=== PATIENT | male | born 1955 | race Caucasian/White ===

== ENCOUNTER 2016-06-25 06:49 | Outpatient (CLI) | payer OTHER ==
[2016-06-25] MEDS ORDERED: TENORMIN25 MG (08:15)
[2016-06-25 08:23] LABS: BASOPHILS 0.3 % (0-2); EOSINOPHILS 2.4 % (0-7); HEMATOCRIT 48.8 % (42.0-54.0); HEMOGLOBIN 16.6 g/dL (13.5-17.5); IMMATURE GRANULOCYTES 0.2 % (0-5); LYMPHOCYTES 25.7 % (15-50); MCH 30.8 pg (26.0-34.0); MCV 90.5 fL (80.0-100.0); MEAN PLATELET VOLUME 10.9 fL (7.4-10.4); MONOCYTES 7.1 % (2-11); NEUTROPHILS 64.3 % (40-80); PLATELET COUNT 195 10x3/uL (130-400); RBC 5.39 10x6/uL (4.20-6.10); WBC 5.8 10x3/uL (4.8-10.8)
[2016-06-25 08:40] LABS: CALC OSMOLALITY 273 mosm/kg (275-300); CALCIUM 9.2 mg/dL (8.5-10.1); CARBON DIOXIDE 28.9 mmol/L (21.0-32.0); CHLORIDE - SERUM 103 mmol/L (98-107); CREATININE - SERUM 0.9 mg/dL (0.6-1.3); GLUCOSE 134 mg/dL (74-106); POTASSIUM - SERUM 4.3 mmol/L (3.5-5.1); SODIUM 136 mmol/L (136-145); UREA NITROGEN 13 mg/dL (7-18); eGFR NON AFRICAN AMERICAN > 90 mL/min (90-120)
[2016-06-25] MEDS ORDERED: PLAVIX75 MG PO (12:13)
== END 2016-06-25 16:09 | disposition home or self-care (01) ==
LOC: D.CATH 06:49
PROVIDERS: Internal Medicine Interventional Cardiology
DX: I25.119 Atherosclerotic heart disease of native coronary artery with unspecified angina pectoris (principal)

== ENCOUNTER 2016-06-30 22:15 | Emergency (ER) | payer OTHER ==
[2016-06-25 08:16] VITALS: BMI 34.0
[~2016-06-30 22:15] MED LIST: PLAVIX75 MG PO; TENORMIN25 MG
== END 2016-06-30 22:48 | disposition home or self-care (01) ==
LOC: D.ER 22:15
DX: R60.0 Localized edema (principal); L76.82 Other postprocedural complications of skin and subcutaneous tissue; I10 Essential (primary) hypertension

== ENCOUNTER 2017-01-16 08:47 | Emergency (ER) | payer OTHER ==
[2016-06-25 08:16] VITALS: BMI 34.0
== END 2017-01-16 10:18 | disposition home or self-care (01) ==
LOC: D.ER 08:47
DX: J06.9 Acute upper respiratory infection, unspecified (principal); I10 Essential (primary) hypertension

== ENCOUNTER 2019-02-18 01:37 | Inpatient (IN) | payer SELFPAY ==
[2019-02-18] VITALS (8 sets, daily range): BP systolic 108–197; BP diastolic 71–106; BMI 33.3
[~2019-02-18] VITALS: Ht 175.3 cm; Wt 102.1 kg
--- NOTE | ~2019-02-18 | EC ---
PATIENT:ZANE NICKERSON DATE OF SERVICE: 02/18/19 SEX: M MEDICAL RECORD: [id number] DATE OF : [birth year] LOCATION:D.M2 D.211 AGE OF PATIENT: 63 ADMISSION DATE: 02/18/19 REFERRING PHYSICIAN: INTERPRETING PHYSICIAN: SAGRARIO MEDRANO MD ECHOCARDIOGRAM REPORT ECHO CHARGES 4 ECHO COMPLETE Date: 02/18/19 CLINICAL DIAGNOSIS: SOB, [place] ECHOCARDIOGRAPHIC MEASUREMENTS (adult normal given) AC root (d.<3.7cm) 2.9 cm LV Septum d (<1.2 cm> 1.0 cm Valve Excursion 1.5 cm LV Septum (systole) 1.1 cm Left Atria (s.<4.0cm> 4.0 cm LVPW d(<1.2cm) 1.0 cm RV (d.<2.3cm) 3.9 cm LVPW (sytole) 1.1 cm LV diastole(<5.6CM) 6.3 cm MV E-F(>70mm/sec) cm LV systole 5.6 cm LVOT Diameter 1.9 cm MV exc.(>10mm) cm Est.ejection fraction (50-75%) % DOPPLER: LVIT cm/sec A 42 cm/sec E 100 cm/sec LA cm/sec RVSP 40.4 mmHg LVOT 95 cm/sec AOP1/2T m/s Asc. Ao 122 cm/sec RVOT 62 cm/sec RA cm/sec PA 81 cm/sec AV Gradient Peak 5.9 mmHg AV Mean 3.7 mmHg AV Area 2.1 cm MV Gradient Peak 4.5 mmHg MV Mean 2.7 mmHg MV Area cm COMMENTS: Car Blocker: Terry JACKSHAQ GERARDO Spanish Professor: 1 Dr. Medrano TAPE# PACS Pericardial Effusion N DATE OF SERVICE: 02/18/2019 FINDINGS: 1. Left ventricular chamber size is mildly dilated. Left ventricular systolic function is moderately reduced, overall ejection fraction 35%. 2. Left atrium is within normal limits. Right atrium and right ventricle chamber sizes are mildly dilated. 3. Valvular structures have normal structure and motion. 4. Doppler interrogation reveals mild mitral regurgitation, mild tricuspid regurgitation, no other valvular insufficiency or stenosis. Pulmonary systolic ECHOCARDIOGRAM REPORT [id number] ZANE NICKERSON pressure estimated at 40 mmHg. 5. No evidence of pericardial effusion or left ventricular thrombus. TRANSINT:[id number] Voice Confirmation ID: [id number] DOCUMENT ID: [id number] SAGRARIO MEDRANO MD CC: [id number] DICTATION DATE: 02/19/19 1303 ASSEMBLY MANAGER: 02/19/192007 ADM IN [place] [id number] [place] [id number]
--- NOTE | ~2019-02-18 | OP ---
PATIENT NAME: ZANE NICKERSON MEDICAL RECORD: [id number] :59 LOCATION:D.M2 D.2111 ADMISSION DATE:02/18/19 SURGEON: SAGRARIO OLIVERA MD DATE OF OPERATION: 02/19/2019 PROCEDURES: 1. PTCA and stent to the RCA. 2. PTCA and stent to the left circumflex. 3. PTCA and stent to the LAD. 4. IFR of the LAD and circumflex. 5. Left heart catheterization. 6. Selective coronary angiography. 7. Left ventriculogram. INDICATIONS: Angina, coronary artery disease, and cardiomyopathy, congestive heart failure. DESCRIPTION OF PROCEDURE: After informed consent was obtained and after a detailed description of the risks, benefits as well as alternative therapies, the patient elected to proceed with angiogram and angioplasty. The right femoral area was prepped and draped in normal sterile fashion. Right femoral artery was cannulated via modified Seldinger technique with placement of 6-Georgian sheath. All catheters exchanged through this sheath. FINDINGS: The left ventriculogram was performed in standard 30-degree PLUMMER view, reveals global hypokinesis, ejection fraction 20% to 25%. SELECTIVE CORONARY ANGIOGRAPHY: 1. Left main is with no significant angiographic disease. 2. Left anterior descending has 80% stenosis in the mid vessel. An IFR was abnormal at 0.80. 3. Left circumflex has 80% stenosis in the mid vessel. An IFR was abnormal at 0.89. 4. Right coronary has 80% stenosis in the proximal vessel. PTCA STENT OF THE LAD: The stent used was a 3.5 x 15 mm Cobra. Result was 0% residual stenosis. PTCA STENT OF THE LEFT CIRCUMFLEX: The stent used was a 2.5 x 18 mm Cobra. Result was 0% residual stenosis. PTCA STENT OF THE RCA: Stent used was 3.5 x 15 mm Cobra. Result was 0% residual stenosis. OVERALL IMPRESSION: Successful percutaneous transluminal coronary angioplasty and stent RCA, left circumflex and left anterior descending all going from 80% initial stenosis to 0% residual. TRANSINT:[id number] Voice Confirmation ID: [id number] DOCUMENT ID: [id number] OPERATIVE REPORT [id number] ZANE NICKERSON SAGRARIO OLIVERA MD CC: [id number] DICTATION DATE: 02/19/19 1035 TRY OUT PERSON: 02/19/19 1802 ADM IN [facility] [address] [place] [address]
--- NOTE | ~2019-02-18 | CN ---
PATIENT NAME:ZANE ORTEZ MEDICAL RECORD: [id number] : 59 LOCATION:[facility].2111 ADMIT DATE: 02/18/19 ACCOUNT: [id number] CONSULTING PHYSICIAN: SAGRARIO OLIVERA MD REFERRING PHYSICIAN: MARIUM SANCHEZ MD DATE OF CONSULTATION: 02/18/2019 CARDIOLOGY CONSULTATION DIAGNOSES: 1. Unstable angina. 2. Coronary artery disease. 3. Hypertension. 4. Hyperlipidemia. 5. Family history of coronary artery disease. 6. Shortness of breath, dyspnea on exertion. 7. Pulmonary edema. HISTORY OF PRESENT ILLNESS: Mr. Ortez has a history of ischemic heart disease, PTCA stent approximately 3 years ago. For the past week, he has had increasing chest pain, chest pressure, some typical components, some atypical components; however, it is just like that of his previous angina even though the predominant component of the chest pain is a sharp stabbing component, was resolved yesterday with 2 sublingual nitro. His troponin is elevating, it is barely under positive for a non-Q-wave myocardial infarction at this time. He has had 1 episode of chest discomfort since being admitted after the sublingual nitro. He was found to be short of breath as well and his chest x-ray compatible with pulmonary edema. He did receive Lasix and has had a good diuresis. His breathing has improved after the Lasix. PHYSICAL EXAMINATION: CONSTITUTIONAL/GENERAL APPEARANCE: Well nourished, well developed, appears stated age. EYES: Lids and conjunctivae noninjected. No discharge. No pallor. ENT: Lips within normal limit. No cyanosis. No pallor. NECK: Carotid arteries, bilateral normal upstroke. No bruits. No thrills. No jugular venous pressure or distention. CERVICAL LYMPH NODES: Nontender. Nonenlarged. THYROID: Not enlarged. No nodules. CARDIOVASCULAR: Precordial exam, nondisplaced. No heaves or pericardial thrills. Rate and rhythm, regular. Heart sounds, normal S1, normal S2. No S3, no gallop, no rub. Systolic murmur, not heard. Diastolic murmur, not heard. RESPIRATORY: Respiratory effort, unlabored. Normal curvature. No thoracic deformity. No chest wall tenderness. Percussion, resonant. Auscultation, clear. No wheezes, no rales, no rhonchi. ABDOMEN: Soft, nondistended, nontender. No abdominal pain, no vomiting and normal appetite. MUSCULOSKELETAL: No joint tenderness, normal gait, normal tone. SKIN: Warm and dry. OVERALL IMPRESSION: Unstable angina just like that of his previous angina associated with pulmonary edema, congestive heart failure. He has not had a history of heart failure or pulmonary edema in the past. Most likely, he has recurrent hemodynamically significant coronary artery disease. We will continue diuresis today. Proceed with coronary angiography in the a.m. CONSULT REPORT [id number] ZANE ORTEZ TRANSINT:[id number] Voice Confirmation ID: [id number] DOCUMENT ID: [id number] SAGRAROI OLIVERA MD CC: [id number] DICTATION DATE: 02/18/19 1021 LEATHER PRODUCTION WORKER: 02/18/19 1141 ADM IN [facility] [address] [place] [id number]
--- NOTE | ~2019-02-18 | HEMODYNAMI ---
PATIENT:ZANE NICKERSON MEDICAL RECORD: [id number] : 59 [id number] ADMISSION DATE: 02/18/19 Generatedon:02/23/20198:37 Patient name: ZANE NICKERSON Patient #: [id number] SSN: [id number] : 1955 Date of study: 02/19/2019 Page: Of Hemodynamic Procedure Report Patient Data Patient Demographics Procedure consent was obtained First Name: ZANE Gender: Male Last Name: KRISHAN : 1955 Patient #: [id number] Age: 63 year(s) Race: SSN: [id number] Additional ID: [id number] Contact details Address: [address] [place] [address] State: [place] City: [place] Zip code: [address] Past Medical History Allergies Allergen Reaction Date Comments Reported Other allergy 02/19/2019 LATEX Admission Admission Data Admission Date: 02/18/2019 Admission Time: 13:25 Arrival Date: 02/19/2019 Arrival Time: 0:00 Admit Source: Other Insurance Payor: Private Room #: D.2112 health insurance [facility] #: [id number] Height (in.): 69 BSA: 2.17 (m2) Height (cm.): 175.26 BMI: 33.3 (kg/m2) Weight (lbs.): 225.47 Weight (kg.): 102.27 Lab Results Lab Result Date: 02/19/2019 Lab Result Time: 0:00 Biochemistry Name Units Result Min Max BUN mg/dl 14 --(--*-)-- 7 18 CK-MB ng/ml 2.2 --(--*-)-- 0 3.6 Creatinine mg/dl 0.8 --(-*--)-- 0.6 1.3 eGFR ml/min 90 --(*---)-- 90 120 NONAFRICAN Troponin l ng/ml 0.072 --(----)*- 0 0.06 CBC Name Units Result Min Max Hematocrit % 41.9 -*(----)-- 42 54 Hemoglobin g/dl 13.8 --(*---)-- 13.5 17.5 Procedure Procedure Types Cath Procedure Diagnostic Procedure [facility] w/Coronaries FFR/IVUS FFR Initial FFR Additional Sedation Charges Moderate Sedation up to 15 minutes PCI Procedure Coronary Stent Coronary Stent Initial Coronary Stent Initial x2 Hemochron ACT Test Procedure Description Procedure Date Procedure Date: 02/19/2019 Procedure Start Time: 10:06 Procedure End Time: 10:38 Procedure Staff Name Function Vijay Medrano MD Performing Physician Aamir James RN Nurse Nirali Wilson RT Scrub Belen James RT Monitor Procedure Data Cath Procedure Fluoroscopy Diagnostic fluoroscopy Total fluoroscopy Time: 7.2 time: 7.2 min min Diagnostic fluoroscopy Total fluoroscopy dose: dose: 1003 mGy 1003 mGy Contrast Material Contrast Material Type Amount (ml) Isovue 370 171 Entry Location Entry Primary Successful Side Size Upsize Upsize Entry Closure Succes sful Closure Location (Fr) 1 (Fr) 2 (Fr) Remarks Device Remarks Femoral Right 5 Fr 6 Fr Exoseal artery Short Estimated blood loss: 10 ml Diagnostic catheters Device Type Used For End Catheter Placement MULTIPACK Pigtail 5 Fr Procedure catheter MULTIPACK JL 4.0 5Fr Procedure catheter MULTIPACK 3DRC 5Fr Procedure catheter Procedure Complications No complications Procedure Medications Medication Administration Route Dosage 0.9% NaCl I.V. 100 ml/hr Oxygen etCO2 Nasal cannula 2 l/min Heparin Flush Bag added to field 2 bags (1000units/500ml NS) Lidocaine 2% added to field 20 Versed I.V. 2 mg Fentanyl I.V. 100 mcg Versed I.V. 2 mg Versed I.V. 1 mg Heparin Bolus I.V. 4000 units Plavix P.O. 75 mg Hemodynamics Rest BSA: 2.17 (m2) HGB: 13.8 (g/dl) O2 Consumption: Estimated: 283.94 (ml/min) O2 Co nsumption indexed: Estimated:130.85 (ml/min/m) Heart Rate: 106 (bpm) Snapshots Pre Cath Intra NCS Post Cath Vital Signs Time Heart Resp SPO2 etCO2 NIBP (mmHg) Rhythm Pain Sedation Rate (ipm) (%) (mmHg) Status Level (bpm) 9:34:22 105 24 95 25.6 136/99(111) NSR 0 (11) 10(A) , No pain 9:39:25 106 26 97 28.6 137/93(110) NSR 0 (11) 10(A) , No pain 9:44:10 103 23 96 27.8 135/95(113) NSR 0 (11) 10(A) , No pain 9:48:59 107 21 96 28.6 133/92(118) NSR 0 (11) 10(A) , No pain 9:53:07 100 17 96 33.1 128/87(111) NSR 0 (11) 10(A) , No pain 9:57:15 94 17 97 0.7 130/85(108) NSR 0 (11) 10(A) , No pain 10:01:20 94 15 97 4.5 126/92(103) NSR 0 (11) 10(A) , No pain 10:05:24 105 14 96 29.3 127/94(118) NSR 0 (11) 10(A) , No pain 10:09:28 100 23 98 24.8 123/97(115) NSR 0 (11) 10(A) , No pain 10:14:27 97 14 96 9.7 135/89(108) NSR 0 (11) 9(A) , No pain 10:18:37 96 14 95 0 126/87(98) NSR 0 (11) 9(A) , No pain 10:22:44 95 16 94 0 135/82(98) NSR 0 (11) 9(A) , No pain 10:26:52 94 17 96 0 132/91(99) NSR 0 (11) 10(A) , No pain 10:31:00 97 22 91 0 121/87(104) NSR 0 (11) 10(A) , No pain 10:35:06 100 24 88 0 125/83(104) NSR 0 (11) 10(A) , No pain Medications Time Medication Route Dose Verified Delivered Reason Notes Effectiveness by by 9:37:37 0.9% NaCl I.V. 100 Aamir Aamir Per physician ml/hr Erika James RN RN 9:37:46 Oxygen etCO2 2 Aamir Aamir for low 02 sats Nasal l/min Lorigan Lorigan cannula RN RN 9:37:57 Heparin Flush added 2 Aamir Aamir used for Bag to bags Erika James procedure (1000units/500ml field RN RN NS) 9:38:06 Lidocaine 2% added 20ml Aamir Aamir for local to vial Erika James anesthetic field RN RN 10:04:16 Versed I.V. 2 mg Aamir Aamir for sedation Erika James RN RN 10:04:25 Fentanyl I.V. 100 Aamir Aamir for sedation mcg Erika James RN RN 10:07:41 Versed I.V. 2 mg Aamir Aamir for sedation Erika James RN RN 10:08:55 Versed I.V. 1 mg Aamir Aamir for sedation Erika James RN RN 10:16:43 Heparin Bolus I.V. 4000 Aamir Aamir for units Allegrasimone Erika anticoagulation RN RN 10:27:22 Plavix P.O. 75 mg Aamir Aamir for Erika James antiplatelet RN RN therapy Procedure Log Time Note 9:04:02 Procedure Status Urgent Heart Cath (IP). 9:04:03 Aamir James RN sent for patient. Start room use. 9:04:04 Time tracking: Regular hours (M-F 7:00 - 5:00) 9:04:06 Plan of Care:Hemodynamics will remain stable., Cardiac rhythm will remain stable., Comfort level will be maintained., Respiratory function will remain adequate., Patient/ family verbilizes understanding of procedure., Procedure tolerated without complication., Recovers from procedure without complications.. 9:04:08 Signed procedure consent form obtained from patient. 9:04:11 H&P Date Dictated: 02/19/2019 New H&P dictated by physician.. 9:04:28 Patient allergic to Other allergyLATEX 9:12:55 Diagnostic Cath Status : Urgent 9:14:05 Lab Result : eGFR NONAFRICAN 90 ml/min 9:14:05 Lab Result : Hemoglobin 13.8 g/dl 9:14:05 Lab Result : Hematocrit 41.9 % 9:14:05 Lab Result : Troponin l 0.072 ng/ml 9:14:05 Lab Result : BUN 14 mg/dl 9:14:05 Lab Result : Creatinine 0.8 mg/dl 9:14:05 Lab Result : CK-MB 2.2 ng/ml 9:14:13 Arrival Date: 02/19/2019 12:00:00 AM 9:14:23 Insurance Payor : Private health insurance 9:14:27 Patient Height : 69 inches 9:14:30 Patient Weight : 225.47 lbs 9:16:33 Risk of Mortality: 0.1 9:16:36 Risk of blood transfusion: 0.1 9:16:38 Risk of NEELIMA: 0.2 9:16:44 Stress Test: no; N/A ? 9:16:51 Lab results completed and on chart. 9:16:53 Sharps counted by scrub and verified by R.N. 9:16:53 Alarms reviewed by R. N. 9:17:01 Pre-procedure instructions explained to patient. 9:17:02 Pre-op teaching completed and patient verbalized understanding. 9:17:06 Patient NPO since Midnight. 9:20:44 Admit Source: Other 9:22:55 Patient received from Med II to CCL 1 Alert and oriented. Tansferred to table in Supine position. 9:22:56 Warm blankets applied, and nimo hugger turned on for patient comfort. 9:22:57 ECG and BP/O2 sat monitors applied to patient. 9:22:57 Correct patient and procedure confirmed by team. 9:23:01 Full Disclosure recording started 9:33:20 Vital chart was started 9:33:31 Family in patients room. 9:33:33 Baseline sample Acquired. 9:33:40 Rhythm: sinus tachycardia 9:33:46 Was the patient premedicated? Yes 9:33:48 Is the patient allergic to Iodine/contrast media? No. 9:33:49 Is patient on blood thinner?Yes 9:33:54 ACC The patient was administered the following blood thiners within the last 24 hours: ACCAspirin, ACCPlavix 9:33:57 If diabetic: On Metformin? No 9:34:11 ----Pre-sedation anethsthesia assessment.---- 9:34:17 Previous problem with sedation/anesthesia? No ? 9:34:18 Snore? No 9:34:19 Sleep apnea? No 9:34:21 Deviated septum? No 9:34:22 Opens mouth fully? Yes 9:34:24 Sticks out tongue? Yes 9:34:27 Airway obstruction? No ? 9:34:29 Dentures? No ? 9:35:02 Pre procedure: right dorsailis pedis pulse 2+ Normal; easily identifiable; not easily obliterated 9:35:09 Patient pain scale 0/10 ?. 9:35:14 IV patent on arrival in right wrist with 0.9% NaCl at [facility]. 9:35:21 Right groin area was prepped with chlora-prep and draped in sterile fashion 9:35:26 Use device set Femoral Dx 9:35:27 ACIST Syringe (80090) opened to sterile field. 9:35:28 Bag Decanter (2002S) opened to sterile field. 9:35:29 Medline Cath Pack ([id number]) opened to sterile field. 9:35:30 ACIST Hand Control (21701) opened to sterile field. 9:35:31 ACIST Manifold (81472) opened to sterile field. 9:35:32 DIAGNOSTIC Multipack 5Fr catheter set (CS6030) opened to sterile field. 9:35:34 Tegaderm 4 x 4 (1626W) opened to sterile field. 9:35:36 SHEATH 5FR [place] (UPS650) opened to sterile field. 9:35:37 EMERALD Guide Wire (471-449) opened to sterile field. 9:36:58 Zero performed for pressure channel P1 9:37:37 0.9% NaCl 100 ml/hr I.V. was administered by Aamir James RN; Per physician; Verbal order read back and verified. 9:37:46 Oxygen 2 l/min etCO2 Nasal cannula was administered by Aamir James RN; for low 02 sats; Verbal order read back and verified. 9:37:57 Heparin Flush Bag (1000units/500ml NS) 2 bags added to field was administered by Aamir James RN; used for procedure; Verbal order read back and verified. 9:38:06 Lidocaine 2% 20ml vial added to field was administered by Aamir James RN; for local anesthetic; Verbal order read back and verified. 10:03:18 --------ALL STOP TIME OUT------ 10:03:19 Final Timeout: patient, procedure, and site verified with staff and physician. All members of the team are in agreement. 10:03:22 Right groin site verified by team. 10:03:26 Fire Safety Assessment: A--An alcohol-based skin anteseptic being used preoperatively., C--Open oxygen or nitrous oxide is being used., D--An ESU, laser, or fiber-optic light is being used. 10:03:30 Physical assessment completed. ASA score P 2 - A patient with mild systemic disease as per Vijay Medrano MD. 10:03:33 1) 90+ Normal kidney functon but urine findings or structural abnormalities or genetic trait point to kidney disease. 10:03:36 Maximum allowable contrast dose (3.7 X eGFR X 0.75)250 ml. 10:03:41 Sedation plan: IV Moderate Sedation Medication:Versed, Fentanyl 10:04:16 Versed 2 mg I.V. was administered by Aamir James RN; for sedation; Verbal order read back and verified. 10:04:25 Fentanyl 100 mcg I.V. was administered by Aamir James RN; for sedation; Verbal order read back and verified. 10:05:48 Procedure started. 10:06:06 Local anesthetic to right femoral artery with Lidocaine 2% by Vijay Medrano MD.INITIAL ACCESS ONLY 10:06:42 Zero performed for pressure channel P1 10:07:17 A 5 Fr sheath was inserted into the Right Femoral artery 10:07:25 A MULTIPACK Pigtail 5 Fr catheter was advanced over the wire and used for Procedure. 10:07:33 LV gram done using PLUMMER 10:07:37 Injector settings: Ml/sec: 10, Volume: 20, 10:07:41 Versed 2 mg I.V. was administered by Aamir James RN; for sedation; Verbal order read back and verified. 10:08:09 EF : 20 % 10:08:18 A MULTIPACK JL 4.0 5Fr catheter was advanced over the wire and used for Procedure. 10:08:37 LCA angiography performed. 10:08:55 Versed 1 mg I.V. was administered by Aamir James RN; for sedation; Verbal order read back and verified. 10:09:55 Catheter removed. 10:09:59 A MULTIPACK 3DRC 5Fr catheter was advanced over the wire and used for Procedure. 10:10:42 RCA angiography performed. 10:10:44 Catheter removed. 10:10:54 SHEATH 6FR [place] (AHL654) opened to sterile field. 10:11:00 Proceeding to intervention. 10:11:10 Sheath upsized to a 6 Fr Short. 10:11:27 6 Fr XBLAD 4 guide catheter was inserted over the wire 10:11:30 Kemmerer Verrata Plus pressure wire (88890K) opened to sterile field. 10:12:00 FFR/IFR wire advanced. 10:12:35 Wire advanced across lesion. 10:13:30 mLAD lesion measured at .80 with IFR 10:13:41 Wire redirected to CIRC. 10:13:45 Wire advanced across lesion. 10:15:16 OM1 lesion measured at .91 with IFR 10:15:51 mCirc lesion measured at .89 with IFR 10:16:43 Heparin Bolus 4000 units I.V. was administered by Aamir James RN; for anticoagulation; Verbal order read back and verified. 10:17:00 Wire removed. 10:18:13 Place stent Inflation Number: 1 A COBRA RX 2.5 X 18 Stent was prepped and advanced across the Mid LAD . The stent was deployed at 19 LUDWIN for 0:00 (min:sec) . 10:18:33 Pre PCI Site: [place] mCirc has 80% stenosis. 10:18:39 Wire removed. 10:18:40 Stent catheter was removed intact over wire. 10:18:48 CHOICE ES 182 wire advanced. 10:19:48 Wire advanced across lesion. 10:20:24 Pre PCI Site: [facility] mLAD has 80% stenosis. 10:21:46 Place stent Inflation Number: 1 A COBRA RX 3.5 X 15 Stent was prepped and advanced across the Mid CX1 . The stent was deployed at 19 LUDWIN for 0:00 (min:sec) . 10:22:26 Wire redirected to DIAG. 10:22:44 Wire removed. 10:22:45 Stent catheter was removed intact over wire. 10:23:34 CHOICE PT Extra Support 182cm wire ([id number]) opened to sterile field. 10:23:35 GUIDE 6FR AR 2.0 SH catheter ([id number]) opened to sterile field. 10:23:46 6 Fr AR 2 guide catheter was inserted over the wire 10:24:16 NEW CHOICE ES 182 wire advanced. 10:25:00 Pre PCI Site: [facility] mRCA has 80% stenosis. 10:25:49 Place stent Inflation Number: 1 A COBRA RX 3.5 X 15 Stent was prepped and advanced across the Mid RCA . The stent was deployed at 17 LUDWIN for 0:00 (min:sec) . 10:26:31 Wire removed. 10:26:31 Stent catheter was removed intact over wire. 10:26:32 Guide catheter removed. 10:26:36 EXOSEAL 6Fr (EX600) opened to sterile field. 10:26:44 Sheath removed intact; hemostasis achieved with Exoseal to the Right Femoral artery. 10:27:07 Procedure ended.(Physican Out) 10:27:17 Fluoroscopy time 07.20 minutes. 10:27:22 Plavix 75 mg P.O. was administered by Aamir James RN; for antiplatelet therapy; Verbal order read back and verified. 10:27:23 Fluoroscopy dose: 1003 mGy 10:27:23 Flurop Dose total: 1003 10:27:30 Dose Area Product 94942 mGy/cm. 10:27:37 Contrast amount:Isovue 370 171ml. 10:27:41 Maximum allowable dose exceeded? No. 10:27:42 Sharps counted by scrub and verified by R.N. 10:27:47 Post-op/insertion site Right Femoral artery dressed using a 4 x 4 and Tegaderm. 10:27:53 Post right femoral artery:stable, soft, clean and dry 10:27:55 Post Procedure Pulses reassessed and unchanged 10:27:57 Post procedure: right dorsailis pedis pulse 2+ Normal; easily identifiable; not easily obliterated. 10:28:02 Post-procedure physical assessment completed. ASA score P 2 - A patient with mild systemic disease as per Vijay Medrano MD. 10:28:07 Post procedure rhythm: sinus rhythm 10:28:10 Estimated blood loss: 10 ml 10:28:12 Post procedure instruction explained to patient.Patient verbalizes understanding. 10:28:13 Patient needs reinforcement of post procedure teaching. 10:29:02 Procedure type changed to Cath procedure, Diagnostic procedure, LHC, LHC w/Coronaries, FFR/IVUS, FFR Initial, FFR Additional, Sedation Charges, Moderate Sedation up to 15 minutes, PCI procedure, Coronary Stent, Coronary Stent Initial, Coronary Stent Initial x2, Hemochron ACT Test 10:29:33 ACT drawn and resulted at OUT OF RANGE seconds. (normal therapeutic range 180-240 seconds). 10:37:29 Procedure and supply charges have been captured, reviewed, submitted and are correct. 10:37:34 Procedure Complication : No complications 10:37:41 [facility] Findings: MVD- PCI performed (see procedure note) 10:37:43 See physician's report for complete and final results. 10:37:43 Operative report dictated upon procedure completion. 10:38:00 Report given to [facility] II. 10:38:13 Patient transfered to [facility] with Bed. 10:38:16 Full Disclosure recording stopped 10:38:16 Procedure ended. 10:38:21 Vital chart was stopped 10:38:26 ACC-PCI Only Patient was given prescriptions, or instructed by Vijay Medrano MD to start/continue the following medications upon discharge: Plavix 10:38:28 End room use (Document Last) Intervention Summary Intervention Notes Time ActionType Lesion and Equipment Action# Pressure Duration Attributes Used 10:18:13 Place stent Mid LAD COBRA RX 1 19 00:00 2.5 X 18 Stent 10:21:46 Place stent Mid CX1 COBRA RX 1 19 00:00 3.5 X 15 Stent 10:25:49 Place stent Mid RCA COBRA RX 1 17 00:00 3.5 X 15 Stent Device Usage Item Name Manufacture Quantity Catalog Number Hospital Part Current Minimal Lot# / Charge Number Stock Stock Serial# Code ACIST Syringe Acist 1 64763 975140 775075 964402 20 (59931) Medical Systems Inc Bag Decanter Microtek 1 724991 80015 655211 5 (2001S) Medical Inc. Medline Cath Medline 1 [id number] 150240 67184 698167 5 Pack ([id number]) ACIST Hand Acist 1 01238 719896 575912 776979 5 Control Medical (90014) Systems Inc ACIST Manifold Acist 1 80918 587761 713277 463832 5 (61745) Medical Systems Inc DIAGNOSTIC Cardinal 1 LN9127 046255 00115 668271 30 Multipack 5Fr Health catheter set (MF5694) Tegaderm 4 x 4 3M 1 1626W 123323 829304 160816 5 (1626W) SHEATH 5FR Terumo 1 UGY313 343394 219435 758156 5 [place] (LFP343) EMERALD Guide Cardinal 1 502-455 899913 222108 078124 5 Wire (502-455) Health MULTIPACK Cardinal 1 472647 5 Pigtail 5 Fr Health catheter MULTIPACK JL Cardinal 1 750123 5 4.0 5Fr Health catheter MULTIPACK 3DRC Cardinal 1 505107 5 5Fr catheter Health SHEATH 6FR Terumo 1 PFT798 643027 732614 663759 40 [place] (JFO622) COBRA RX 2.5 X Celonova 1 102-86-57817 271491 427941959 1793507 4 0 [id number] 18 stent Biosciences () Kemmerer Kemmerer 1 60236W 847679 247545328 710273 5 Verrata Plus pressure wire (68956Q) COBRA RX 3.5 X Celonova 2 463-62-89618 677691 130795395 7253820 9 [id number] 15 stent Biosciences [id number] () CHOICE PT [place] 1 [id number] 146762 092144 997978 5 Extra Support Scientific 182cm wire ([id number]) GUIDE 6FR AR Medtronic 1 [id number] 412120 65877 396352 1 2.0 SH catheter ([id number]) EXOSEAL 6Fr Cardinal 1 EX600 855060 202686 395588 10 (EX600) Health Signature Audit [place] Stage Time Signature Unsigned Intra-Procedure 02/19/2019 Belen James 10:38:43 AM RT(R) Intra-Procedure 02/19/2019 Aamir 10:39:07 AM Erika BULLOCK Intra-Procedure 02/19/2019 Vijay Medrano MD 10:39:20 AM 02/23/2019 8:34:05 AM Intra-Procedure 02/23/2019 Vijay Medrano 8:37:40 AM [id number] [place] [address]
[2019-02-18] MEDS ORDERED: LOPRESSOR25 MG PO (01:46)
[2019-02-18] MEDS ORDERED: ZOCOR10 MG PO (01:46)
[2019-02-18] MEDS ORDERED: BAYER CHEWABLE81 MG PO (01:46)
[2019-02-18 01:57] LABS: BASOPHILS 0.4 % (0-2); EOSINOPHILS 2.2 % (0-7); HEMATOCRIT 46.6 % (42.0-54.0); HEMOGLOBIN 15.2 g/dL (13.5-17.5); IMMATURE GRANULOCYTES 0.3 % (0-5); LYMPHOCYTES 17.3 % (15-50); MCH 30.3 pg (26.0-34.0); MCHC 32.6 g/dL (31.0-37.0); MEAN PLATELET VOLUME 10.7 fL (7.4-10.4); MONOCYTES 6.5 % (2-11); NEUTROPHILS 73.3 % (40-80); PLATELET COUNT 198 10x3/uL (130-400); RBC 5.01 10x6/uL (4.20-6.10); RDW 14.1 % (11.5-14.5); WBC 9.7 10x3/uL (4.8-10.8)
[2019-02-18 02:06] LABS: CALC OSMOLALITY 283 mosm/kg (275-300); CALCIUM 8.8 mg/dL (8.5-10.1); CARBON DIOXIDE 23.8 mmol/L (21.0-32.0); CHLORIDE - SERUM 106 mmol/L (98-107); GLUCOSE 160 mg/dL (74-106); POTASSIUM - SERUM 4.7 mmol/L (3.5-5.1); SODIUM 139 mmol/L (136-145); UREA NITROGEN 20 mg/dL (7-18); eGFR NON AFRICAN AMERICAN 81 mL/min (90-120)
[2019-02-18 02:07] LABS: INR 1.18 (0.85-1.17); PROTIME 14.5 SECONDS (11.6-15.0)
--- NOTE | 2019-02-18 02:07 | NUR ---
PRIOR TO 1ST NITRO PT REPORTS PAIN 08/07. BP 166/106 HR 99
[2019-02-18 02:08] LABS: APTT 31.1 SECONDS (22.8-39.4)
--- NOTE | 2019-02-18 02:22 | NUR ---
PT REPORTS PAIN 2/10 AFTER 1ST NITRO BP 143/85 HR 94
[2019-02-18 02:27] LABS: ALBUMIN 3.2 g/dL (3.4-5.0); ALKALINE PHOSPHATASE 57 U/L (46-116); ALT (SGPT) 150 U/L (10-68); BILIRUBIN - TOTAL 0.84 mg/dL (0.2-1.3); CKMB 3.5 U/L (0.0-3.6); CREATINE KINASE 105 UL (21-232); PRO BNP 9157 pg/mL (0-125); PROTEIN - SERUM 6.1 g/dL (6.4-8.2); TROPONIN-I 0.036 ng/mL (0.000-0.060)
--- NOTE | 2019-02-18 02:33 | NUR ---
PT REPORTS PAIN 0/10 AT THIS TIME AFTER 2ND NITRO. BP 137/89 HR 92
--- NOTE | 2019-02-18 03:40 | NUR ---
PATIENT TO THE FLOOR, PAITENT ABLE TO AMBULATE TO THE BED WITH LITTLE ASSISTANCE. PATIENT RESTING IN BED, AT BEDSIDE
[2019-02-18 04:29] LABS: CKMB 3.3 U/L (0.0-3.6); CREATINE KINASE 101 UL (21-232); TROPONIN-I 0.041 ng/mL (0.000-0.060)
[2019-02-18 09:09] LABS: CKMB 2.8 U/L (0.0-3.6); CREATINE KINASE 78 UL (21-232); TROPONIN-I 0.056 ng/mL (0.000-0.060)
[2019-02-18 14:28] LABS: APPEARANCE CLEAR (CLEAR); BILIRUBIN NEGATIVE (NEGATIVE); COLOR YELLOW (YELLOW); GLUCOSE NEGATIVE (NEGATIVE); KETONE MODERATE mg/dL (NEGATIVE); NITRITE NEGATIVE (NEGATIVE); PROTEIN NEGATIVE (NEGATIVE); SPECIFIC GRAVITY 1.015 (1.005-1.020); UROBILINOGEN NORMAL (NORMAL)
[2019-02-18 15:37] LABS: CKMB 2.2 U/L (0.0-3.6); CREATINE KINASE 65 UL (21-232)
[2019-02-18 15:40] LABS: TROPONIN-I 0.072 ng/mL (0.000-0.060)
--- NOTE | 2019-02-18 15:43 | NUR ---
CRITICAL HIGH TRIPONIN CALLED INTO DR. OLIVERA. NO NEW ORDERS
--- NOTE | 2019-02-18 19:32 | NUR ---
PT ALERT AND AWAKE BED IS LOCKED PT JUST WANTS DOOR SHUT AND ONLY BOTHERED IF NEED BE LCTA CALL LIGHT IS WITH PT
[2019-02-19 00:30] VITALS: BP 114/61
--- NOTE | 2019-02-19 01:24 | NUR ---
I have reviewed this patient and I concur with the Shift Assessment completed by the Licensed Practical Nurse today this shift.
[2019-02-19 04:03] VITALS: BP 129/71
[2019-02-19 06:01] LABS: BASOPHILS 0.2 % (0-2); EOSINOPHILS 2.7 % (0-7); HEMATOCRIT 41.9 % (42.0-54.0); HEMOGLOBIN 13.8 g/dL (13.5-17.5); IMMATURE GRANULOCYTES 0.2 % (0-5); LYMPHOCYTES 6.4 % (15-50); MCH 30.1 pg (26.0-34.0); MCHC 32.9 g/dL (31.0-37.0); MCV 91.3 fL (80.0-100.0); MEAN PLATELET VOLUME 10.9 fL (7.4-10.4); MONOCYTES 7.1 % (2-11); NEUTROPHILS 83.4 % (40-80); PLATELET COUNT 170 10x3/uL (130-400); RBC 4.59 10x6/uL (4.20-6.10); WBC 8.3 10x3/uL (4.8-10.8)
[2019-02-19 06:27] LABS: CALC OSMOLALITY 277 mosm/kg (275-300); CALCIUM 8.5 mg/dL (8.5-10.1); CARBON DIOXIDE 25.4 mmol/L (21.0-32.0); CHLORIDE - SERUM 104 mmol/L (98-107); CREATININE - SERUM 0.8 mg/dL (0.6-1.3); GLUCOSE 115 mg/dL (74-106); SODIUM 138 mmol/L (136-145); eGFR NON AFRICAN AMERICAN > 90 mL/min (90-120)
[2019-02-19 06:28] LABS: UREA NITROGEN 14 mg/dL (7-18)
--- NOTE | 2019-02-19 07:44 | NUR ---
PATIENT IS BEING PREOPED NOW. PATIENT IS ALERT AND AWAKE. AT BEDSIDE. BATH AND CONSENTS COMPLETE.
[2019-02-19 08:40] VITALS: BP 153/90
--- NOTE | 2019-02-19 10:38 | NUR ---
PATIENT IS AT THE DIMETHYLANILINE SULFATOR OPERATOR RIGHT NOW. DIMETHYLANILINE SULFATOR OPERATOR JUST CALLED TO REPORT PROGRESS. JOSELIN PUT IN ONE STENT TO HIS LAD, ONE IN THE CIRC ONE IN THE RCA. THEY GAVE HEPARIN 4000 UNITS, PLAVIX 75 MG, VERSED 5 MG AND FENTENYL 100 MICROGRAMS. THEY WENT THROUGH HIS RIGHT FEMORAL, AND CLOSED WITH A 6 TELUGU EXOSEAL. WAITING TO RECIEVE THE PATIENT NOW. AT BEDSIDE.
--- NOTE | 2019-02-19 11:00 | NUR ---
PATIENT IS BACK FROM THE PROCEDURE. HE WILL BE RESTING ON HIS BACK FOR 4 HOURS. FAMILY AT BEDSIDE.
--- NOTE | 2019-02-19 11:11 | NUR ---
VITAL SIGNS STABLE, B/P 121/65 , 2 L O2 AND SATURATION IS 97, PULSE IS 80.PATIENT IS LAYING FLAT 4 HOURS, HE CAN SIT UP AROUND 1500.
[2019-02-19 13:01] VITALS: BP 121/65
[2019-02-19 14:04] VITALS: Ht 175.3 cm; Wt 102.1 kg
[2019-02-19 17:27] VITALS: BP 145/95
--- NOTE | 2019-02-19 19:20 | NUR ---
PT LYING IN BED TALKING ON PHONE. DENIES NEEDS AT THIS TIME. CL IN REACH. A/O X4. LUNGS CLEAR. BOWEL ACTIVE X4. BED IN LOW SIDE RAILS X2. PT ON 2L OF O2 VIA NC. RESP EVEN AND UNLABORED. WILL CONTINUE TO MONITOR.
[2019-02-19 20:00] VITALS: BP 158/92
--- NOTE | 2019-02-19 20:49 | NUR ---
BP 158/92 TALKED WITH SARTHAK SILVA AND HE STATED IF TOP NUMBER OF BP GOES OVER 170 TO CALL TM
[2019-02-20 00:09] VITALS: BP 101/60
--- NOTE | 2019-02-20 02:09 | NUR ---
I have reviewed this patient and I concur with the Shift Assessment completed by the Licensed Practical Nurse today this shift.
[2019-02-20 04:00] VITALS: BP 111/78
[2019-02-20 05:10] LABS: BASOPHILS 0.2 % (0-2); EOSINOPHILS 2.4 % (0-7); HEMATOCRIT 41.9 % (42.0-54.0); HEMOGLOBIN 13.9 g/dL (13.5-17.5); IMMATURE GRANULOCYTES 0.1 % (0-5); LYMPHOCYTES 10.7 % (15-50); MCHC 33.2 g/dL (31.0-37.0); MCV 90.5 fL (80.0-100.0); MEAN PLATELET VOLUME 10.9 fL (7.4-10.4); MONOCYTES 10.8 % (2-11); NEUTROPHILS 75.8 % (40-80); PLATELET COUNT 192 10x3/uL (130-400); RBC 4.63 10x6/uL (4.20-6.10); RDW 13.9 % (11.5-14.5); WBC 8.1 10x3/uL (4.8-10.8)
[2019-02-20 05:42] LABS: CALC OSMOLALITY 278 mosm/kg (275-300); CALCIUM 8.4 mg/dL (8.5-10.1); CARBON DIOXIDE 26.1 mmol/L (21.0-32.0); CHLORIDE - SERUM 102 mmol/L (98-107); GLUCOSE 131 mg/dL (74-106); POTASSIUM - SERUM 3.6 mmol/L (3.5-5.1); SODIUM 138 mmol/L (136-145); UREA NITROGEN 14 mg/dL (7-18); eGFR NON AFRICAN AMERICAN 81 mL/min (90-120)
--- NOTE | 2019-02-20 08:36 | NUR ---
ALERT AND ORIENTED. TELEMERTY SHOWS SR. RIGHT FA SL, PATENT. UP AB MARILOU. RIGHT GROIN SOFT WITH DRSG DRY AND INTACT. DENIES ANY NEEDS. WILL MONITOR
[2019-02-20 09:19] VITALS: BP 135/85
[2019-02-20] MEDS ORDERED: PLAVIX75 MG PO (10:22)
[2019-02-20] MEDS ORDERED: PROTONIX40 MG PO (10:22)
[2019-02-20] MEDS ORDERED: COREG12.5 MG PO (10:22)
--- NOTE | 2019-02-20 12:07 | NUR ---
I have reviewed this patient and I concur with the Shift Assessment completed by the Licensed Practical Nurse today this shift.
[2019-02-20 12:13] VITALS: BP 113/84
--- NOTE | 2019-02-20 13:43 | NUR ---
PT IS DISCHARGED.IV DCD WITH TIP INTACT.DRSG TO RIGHT GROIN IS DRY6 AND INTACT. INSTRUCTIONS GIVEN TO PT. AWAITING TRANSPORTATION.
--- NOTE | 2019-02-20 15:14 | MORECARE ---
CASE MANAGEMENT DISCHARGE SUMMARY PATIENT: ZANE NICKERSON UNIT: [id number] ADM DATE: 02/18/19 AGE: 63 : 59 SEX: M ROOM/BED: D.2112 AUTHOR: CHON MAHARAJ PHYSICIAN: REFERRING PHYSICIAN: MARIUM SANCHEZ MD DATE OF SERVICE: 02/20/19 Discharge Plan Patient Name: ZANE NICKERSON Facility: [facility]:[place] : 1955 Planned Disposition: Home Anticipated Discharge Date: 02/20/19 Discharge Date: Expected LOS: 2 Initial Reviewer: [email or web address] Initial Review Date: 02/20/2019 Generated: 02/20/19 4:13 pm Patient Name: ZANE NICKERSON Page 11438 at 1514 All edits/amendments must be made on the electronic document DICTATION DATE: 02/20/191512 NIPPING MACHINE OPERATOR: MARLEY 02/20/191512 RPT#: [id number] DC DATE: STATUS: ADM IN [facility] [address] [place] [address] END OF REPORT
--- NOTE | 2019-02-20 15:33 | MORECARE ---
CASE MANAGEMENT DISCHARGE SUMMARY PATIENT: ZANE NICKERSON UNIT: [id number] ADM DATE: 02/18/19 AGE: 63 : 59 SEX: M ROOM/BED: D.211 AUTHOR: CHON MAHARAJ PHYSICIAN: REFERRING PHYSICIAN: MARIUM SANCHEZ MD DATE OF SERVICE: 02/20/19 Discharge Plan Patient Name: ZANE NICKERSON [facility] [facility] 1955 Planned Disposition: Home Anticipated Discharge Date: 02/20/19 Discharge Date: Expected LOS: 2 Initial Reviewer: [email or web address] Initial Review Date: 02/20/2019 Generated: 02/20/19 4:33 pm DCPIA - Discharge Planning Initial Assessment Updated by [email or web address]: Antony Diaz on 02/20/19 3:32 pm * Is the patient Alert and Oriented? Yes * How many steps to enter\exit or inside your home? * PCP DR. CAMARGO * Pharmacy [facility] * Preadmission Environment Home with Family * ADLs Independent * Equipment None * Other Equipment NO MEDICAL EQUIPMENT PROVIDER PREFERENCE * List name and contact numbers for known caregivers / representatives who currently or will assist patient after discharge: YUSRA NICKERSON, SPOUSE, * Verbal permission to speak to the caregivers and representatives has been obtained from the patient. N/A * Community resources currently utilized None * Please name any agencies selected above. NONE * Additional services required to return to the preadmission environment? No * Can the patient safely return to the preadmission environment? Yes * Has this patient been hospitalized within the prior 30 days at any hospital? No Last DP export: 02/20/19 2:14 Patient Name: ZANE NICKERSON Page 35644 at 1533 All edits/amendments must be made on the electronic document DICTATION DATE: 02/20/191531 CHIEF ORDER DISPATCHER: MARLEY 02/20/191531 RPT#: [id number] DC DATE: STATUS: ADM IN [facility] [address] [place] [address] END OF REPORT
--- NOTE | 2019-02-20 15:40 | MORECARE ---
CASE MANAGEMENT DISCHARGE SUMMARY PATIENT: ZANE NICKERSON UNIT: [id number] ADM DATE: 02/18/19 AGE: 63 : 59 SEX: M ROOM/BED: D.4572 AUTHOR: NICKODOC PHYSICIAN: REFERRING PHYSICIAN: MARIUM SANCHEZ MD DATE OF SERVICE: 02/20/19 Discharge Plan Patient Name: AZNE NICKERSON Facility: [facility]:[place] : 1955 Planned Disposition: Home Anticipated Discharge Date: 02/20/19 Discharge Date: 02/20/2019 Expected LOS: 2 Initial Reviewer: [email or web address] Initial Review Date: 02/20/2019 Generated: 02/20/19 4:39 pm Comments DCP- Discharge Planning Updated by [email or web address]: Antony Diaz on 02/20/19 2:[address] Patient Name: ZANE NICKERSON Admission Status: ER Accout number: [id number] Admission Date: 02-18-2019 : 1955 Admission Diagnosis: Attending: MARIUM SANCHEZ Current LOS: 2 Anticipated DC Date: 02-20-2019 Planned Disposition: Home Primary Insurance: UNINSURED DISCOUNT PLAN Discharge Planning Comments: CM MET WITH PT IN ROOM TO DISCUSS DISCHARGE PLANNING AND NEEDS. PT REPORTS LIVING AT HOME INDEPENDENTLY WITH HIS . PT HAS NO MEDICAL EQUIPMENT AND NO OUTSIDE SERVICES ASSISTING IN THE HOME. CM DISCUSSED AVAILABILITY OF HOME HEALTH, REHAB SERVICES AND MEDICAL EQUIPMENT. PT DENIES DISCHARGE NEEDS, REPORTS HIS WILL PICK HIM UP FOR DISCHARGE HOME.CM DISCUSSED POSSIBLE MEDICAID TO ASSIST WITH HOSPITAL BILL, PT REPORTS THAT HE KNOWS HE MAKES TOO MUCH INCOME BETWEEN HE AND HIS SPOUSE TO QUALIFY THEY TRIED FOR HIS DURING HER LAST HOSPITAL STAY. CM PROVIDED GOOD RX PHARMACY ASSISTANCE CARD TO USE IF NEEDED. PT DENIES DISCHARGE NEEDS. UNDERWRITING TECHNICIAN NURSE NOTIFIED. Retail Coverage Merchandiser: Antony Diaz DCPIA - Discharge Planning Initial Assessment Updated by [email or web address]: Antony Diaz on 02/20/19 3:32 pm * Is the patient Alert and Oriented? Yes * How many steps to enter\exit or inside your home? * PCP DR. CAMARGO * Pharmacy [facility] * Preadmission Environment Home with Family * ADLs Independent * Equipment None * Other Equipment NO MEDICAL EQUIPMENT PROVIDER PREFERENCE * List name and contact numbers for known caregivers / representatives who currently or will assist patient after discharge: YUSRA NICKERSON, SPOUSE, * Verbal permission to speak to the caregivers and representatives has been obtained from the patient. N/A * Community resources currently utilized None * Please name any agencies selected above. NONE * Additional services required to return to the preadmission environment? No * Can the patient safely return to the preadmission environment? Yes * Has this patient been hospitalized within the prior 30 days at any hospital? No Last DP export: 02/20/19 2:33 Patient Name: ZANE NICKERSON Page [id number] at 1540 All edits/amendments must be made on the electronic document DICTATION DATE: 02/20/191538 MEDICAL ORDERLY: MARLEY 02/20/191538 RPT#: [id number] DC DATE:02/20/19 STATUS: DIS IN [facility] [address] [place] [address] END OF REPORT
== END 2019-02-20 15:33 | disposition home or self-care (01) | DRG 248 ==
LOC: D.ER 01:37 → D.M2 02:39 → OBSVTIME 02:39 → D.M2 13:25
PROVIDERS: Emergency Medicine; Internal Medicine Interventional Cardiology; ADMIT Internal Medicine Nephrology; ATTEND Internal Medicine Nephrology
PROC: B2111ZZ Fluoroscopy of Multiple Coronary Arteries using Low Osmolar Contrast (ICD-10-PCS; 2019-02-19)
PROC: B2151ZZ Fluoroscopy of Left Heart using Low Osmolar Contrast (ICD-10-PCS; 2019-02-19)
PROC: 02713FZ Dilation of Coronary Artery, Two Arteries with Three Intraluminal Devices, Percutaneous Approach (ICD-10-PCS; principal; 2019-02-19 09:04)
PROC: 4A023N7 Measurement of Cardiac Sampling and Pressure, Left Heart, Percutaneous Approach (ICD-10-PCS; 2019-02-19 09:04)
DX: I25.110 Atherosclerotic heart disease of native coronary artery with unstable angina pectoris (principal); I50.21 Acute systolic (congestive) heart failure; J81.0 Acute pulmonary edema; N17.9 Acute kidney failure, unspecified; I16.0 Hypertensive urgency; I11.0 Hypertensive heart disease with heart failure; E78.5 Hyperlipidemia, unspecified; Z87.891 Personal history of nicotine dependence

== ENCOUNTER → 2019-05-22 08:09 | Outpatient (CLI) | payer SELFPAY ==
[2019-02-19 14:04] VITALS: BMI 33.2
[~2019-05-22 08:09] MED LIST changes: +BAYER CHEWABLE81 MG PO; +COREG12.5 MG PO; +LOPRESSOR25 MG PO; +PROTONIX40 MG PO; +ZOCOR10 MG PO
== END | disposition home or self-care (01) ==
LOC: D.HCCECHO 08:09
PROVIDERS: ATTEND Internal Medicine Interventional Cardiology
DX: I25.10 Atherosclerotic heart disease of native coronary artery without angina pectoris (principal); I11.0 Hypertensive heart disease with heart failure; I50.9 Heart failure, unspecified; I42.9 Cardiomyopathy, unspecified